=== PATIENT | male | born 1970 | race Caucasian/White ===

== ENCOUNTER 2019-12-19 21:15 | Emergency (ER) | payer MEDICARE ==
[2019-12-19] MEDS ORDERED: BACIGUENT PACKET TP ONE (21:43)
[2019-12-19] MEDS ORDERED: XYLOCAINE 1% HCL 20 ML MDV IJ ONE (21:43)
[2019-12-19] MEDS ORDERED: BACIGUENT PACKET ONE (21:45)
[2019-12-19 22:12] VITALS: BP 103/84; PULSE 109
[2019-12-19 22:13] VITALS: O2SAT 97
--- NOTE | 2019-12-19 22:13 | ERPHSYRPT ---
- History of Present Illness Time Seen by Provider: 12/19/19 21:35 Source: patient Exam Limitations: no limitations Patient Subjective Stated Complaint: pt states he was moving a fuel pump and it slipped and cut his rt hand Triage Nursing Assessment: pt alert and oriented, answers questions approp. pt ambulatory with steady gait notes. respirations nonlabored with lungs cta. laceration to rt hand with skin flap approx 4x3 cm. minimal bleeding noted. cap refill and radial pulse to rt wnl. Physician History: This is a 49-year-old male who is right-handed and is on Plavix because of cardiac stents that were placed recently and presents with a right hand laceration that was accidental. Patient's tetanus status is up-to-date. Timing/Duration: today Quality: painful Severity: mild Location: hands (Right hand) Possible Causes: other (Accidental laceration with metal) Associated Symptoms: denies symptoms Allergies/Adverse Reactions: red dye Allergy (Severe, Verified 12/19/19 21:48) Swelling of Face gabapentin Allergy (Intermediate, Verified 12/19/19 21:48) morphine Allergy (Intermediate, Verified 12/19/19 21:48) Sulfa (Sulfonamide Antibiotics) Allergy (Intermediate, Verified 12/19/19 21:48) insulin glargine [From Lantus U-100 Insulin] Allergy (Verified 12/19/19 21:48) Home Medications: Unobtainable 12/19/19 [History] Hx Tetanus, Diphtheria Vaccination/Date Given: Yes Hx Influenza Vaccination/Date Given: No Hx Pneumococcal Vaccination/Date Given: No Immunizations Up to Date: Yes Travel Risk - International Travel Have you traveled outside of the country in past 3 weeks: No - Coronavirus Screening Are you exhibiting any of the following symptoms?: No Close contact with a COVID-19 positive Pt in past 14-21 Days: No - Review of Systems Constitutional: No Symptoms Eyes: No Symptoms Ears, Nose, & Throat: No Symptoms Respiratory: No Symptoms Cardiac: No Symptoms Abdominal/Gastrointestinal: No Symptoms Genitourinary Symptoms: No Symptoms Musculoskeletal: No Symptoms Skin: Other (Laceration right hand) Neurological: No Symptoms Psychological: No Symptoms Endocrine: No Symptoms Hematologic/Lymphatic: No Symptoms Immunological/Allergic: No Symptoms All Other Systems: Reviewed and Negative - Past Medical History Pertinent Past Medical History: Yes Neurological History: No Pertinent History ENT History: No Pertinent History Cardiac History: Myocardial Infarction (NH) Respiratory History: No Pertinent History Endocrine Medical History: No Pertinent History Musculoskeletal History: No Pertinent History GI Medical History: No Pertinent History History: No Pertinent History Psycho-Social History: No Pertinent History Male Reproductive Disorders: No Pertinent History Other Medical History: mi x 2 with 3 stents. thyroid ca. kidney stones - Past Surgical History Past Surgical History: Yes Neuro Surgical History: No Pertinent History Cardiac: Cardiac Stent Respiratory: No Pertinent History Gastrointestinal: Cholecystectomy Genitourinary: No Pertinent History Musculoskeletal: Orthopedic Surgery Male Surgical History: Vasectomy Other Surgical History: lt shoulder surgery, bilat elbows and bilat wrist surgery. stimulator in back x2 and both removed - Social History Smoking Status: Never smoker Exposure to second hand smoke: No Drug Use: none Patient Lives Alone: No - Nursing Vital Signs Nursing Vital Signs: Initial Vital Signs Temperature 98.1 F 12/19/19 21:20 Pulse Rate 110 H 12/19/19 21:20 Respiratory Rate 18 12/19/19 21:20 Blood Pressure 129/79 12/19/19 21:20 O2 Sat by Pulse Oximetry 97 12/19/19 21:20 Pain Scale Pain Intensity 2 - Physical Exam General Appearance: no apparent distress, alert, anxiety Eye Exam: PERRL/EOMI, eyes nml inspection Ears, Nose, Throat Exam: normal ENT inspection, moist mucous membranes Neck Exam: normal inspection, non-tender, supple, full range of motion Respiratory Exam: airway intact, No chest tenderness, No respiratory distress Gastrointestinal/Abdomen Exam: No tenderness Back Exam: normal inspection, normal range of motion, No CVA tenderness, No vertebral tenderness Extremity Exam: normal range of motion, pelvis stable, lacerations (Right hand laceration thenar eminence. Approximately 4 cm x 3 cm skin flap. Patient is neurovascularly intact. Patient's tendon function is also intact.) Neurologic Exam: alert, oriented x 3, cooperative, casing flusher II-XII nml as tested, nml cerebellar function, nml station & gait Skin Exam: laceration Lymphatic Exam: No adenopathy (See above) SpO2 Interpretation: normal SpO2: 97 O2 Delivery: Room Air Procedures - Laceration/Wound Repair Right Hand Wound Location: Right, hand (Thenar eminence) Wound Length (cm): 4 Wound's Depth, Shape: superficial, flap Wound Explored: clean (No foreign body noted. There is mild venous oozing from the) Irrigated: Yes ( flap skin edges.) Hibiclens Prep: Yes Anesthesia: 1% Lidocaine (5 cc) Volume Anesthetic (ccs): 5 Wound Repaired With: sutures Suture Size/Type: 4-0, prolene Number of Sutures: 11 Layer Closure?: No Sterile Dressing Applied?: Yes Progress: 12/19/19 22:15 Patient tolerated the procedure well. After the laceration was repaired, the area was cleaned and dried. Bacitracin ointment was applied. Nonstick gauze and a pressure dressing was applied. - Course Nursing assessment & vital signs reviewed: Yes Ordered Tests: Medication Summary Discontinued Medications Generic Name Dose Route Start Last Admin Trade Name Vladimir PRN Reason Stop Dose Admin Bacitracin Zinc 0.9 gm 12/19/19 21:43 12/19/19 21:50 Baciguent Packet TP 12/19/19 21:44 0.9 gm STAT ONE Administration Bacitracin Zinc Confirm 12/19/19 21:45 Baciguent Packet Administered 12/19/19 21:46 Dose 1 gm .ROUTE .STK-MED ONE Lidocaine HCl 5 ml 12/19/19 21:43 12/19/19 21:51 Xylocaine 1% Hcl 20 Ml Mdv IJ 12/19/19 21:44 5 ml STAT ONE Administration - Progress Progress: improved, re-examined Counseled pt/family regarding: diagnosis, need for follow-up - Departure Departure Disposition: Home Clinical Impression: Laceration of right hand Condition: Stable Critical Care Time: No Additional Instructions: Use Tylenol for pain. Hold tonight's Plavix dose. Ice pack to site 3 times a day for the next 36 hours. Call your Plavix prescribing doctor tomorrow morning to see if you are able to hold tomorrow morning's Plavix dose as well. Follow their directions. Remove the dressing in 36 hours. After 36 hours may wash with soap and water dry with a hairdryer or blot dry and then reapply antibiotic ointment daily thereafter, a nonstick bandage. Suture removal in 8 to 10 days.
== END 2019-12-19 22:21 | disposition home or self-care (01) ==
LOC: ED 21:15
DX: S61.411A Laceration without foreign body of right hand, initial encounter (principal); W26.8XXA Contact with other sharp object(s), not elsewhere classified, initial encounter; Y93.89 Activity, other specified; Y92.89 Other specified places as the place of occurrence of the external cause
CPT/HCPCS: 12002; 96372; 99283; A9270-GY